=== PATIENT | female | born 1970 ===

== ENCOUNTER 2019-03-01 08:47 | Day surgery (SDC) | payer OTHER ==
[2019-03-01 09:16] VITALS: BMI 46.3
[2019-03-01] MEDS ORDERED: Lactated Ringer's 500 ML IV ONE ×2 (09:38→10:28)
[2019-03-01] MEDS ORDERED: Propofol 10 mg/ml Inj (20 ML) ONE (10:15)
[2019-03-01 10:43] VITALS: RESP 20
[2019-03-01 10:56] VITALS: O2SAT 97
[2019-03-01 11:17] VITALS: BP 122/64; PULSE 84; TEMP 98.1
== END 2019-03-01 11:27 | disposition home or self-care (01) ==
LOC: H.ENDO 08:47
PROVIDERS: ATTEND Internal Medicine Gastroenterology
DX: K21.0 Gastro-esophageal reflux disease with esophagitis (principal); K29.50 Unspecified chronic gastritis without bleeding; K44.9 Diaphragmatic hernia without obstruction or gangrene; R10.13 Epigastric pain
CPT/HCPCS: 43239; 88305; J2001; J2704; J7120